=== PATIENT | male | born 1980 | race Caucasian/White ===

== ENCOUNTER → 2019-04-03 | Emergency (ER) | payer OTHER ==
[~2019-04-03] VITALS: Ht 190.5 cm; Wt 86.2 kg
[~2019-04-03] MED LIST: CLONAZEPAM0.25 MG PO
== END | disposition left against medical advice (07) ==
LOC: ER 15:29
DX: Z53.20 Procedure and treatment not carried out because of patient's decision for unspecified reasons (principal)